=== PATIENT | female | born 1985 | race African-American/Black ===

== ENCOUNTER 2016-09-17 18:40 | Emergency (ER) | payer SELFPAY ==
[~2016-09-17] VITALS: Ht 165.1 cm; Wt 94.0 kg
[2016-09-17] MEDS ORDERED: IBUPROFEN 600MG TABLET PO ONE (22:30)
[2016-09-18 00:15] VITALS: BP 110/69
== END 2016-09-18 00:20 | disposition home or self-care (01) ==
LOC: EDBD 18:40 → ER 18:46
DX: R07.81 Pleurodynia (principal); V89.2XXA Person injured in unspecified motor-vehicle accident, traffic, initial encounter; Y93.89 Activity, other specified; Y92.89 Other specified places as the place of occurrence of the external cause; Y99.8 Other external cause status; Z88.6 Allergy status to analgesic agent
CPT/HCPCS: 71010; 81025; 93005; 99284